=== PATIENT | male | born 1985 | race Caucasian/White ===

== ENCOUNTER 2018-08-15 04:32 | Emergency (ER) | payer BC ==
[~2018-08-15] VITALS: Ht 177.8 cm; Wt 78.5 kg
[2018-08-15] MEDS ORDERED: GAVISCON ES CH1 EAC1 PO (04:51)
[2018-08-15] MEDS ORDERED: NEXIUM40 MG PO (04:51)
[2018-08-15 05:35] LABS: URINE BILIRUBIN NEGATIVE (Negative); URINE BLOOD NEGATIVE (Negative); URINE CLARITY CLEAR; URINE COLOR YELLOW; URINE GLUCOSE-RANDOM NEGATIVE (Negative); URINE KETONES NEGATIVE (Negative); URINE LEUKOCYTES-REFLEX NEGATIVE (Negative); URINE NITRITE-REFLEX NEGATIVE (Negative); URINE PROTEIN NEGATIVE (Negative); URINE SPECIFIC GRAVITY 1.025 (1.005-1.030); URINE UROBILINOGEN 0.2 E.U./dl (0.2-1.0)
[2018-08-15] MEDS ORDERED: CARAFATE 1 GM TA1 GM PO (06:35)
[2018-08-15 06:39] VITALS: BP 104/65
== END 2018-08-15 06:39 | disposition home or self-care (01) ==
LOC: M.ERS 04:32
PROVIDERS: Emergency Medicine
DX: K21.9 Gastro-esophageal reflux disease without esophagitis (principal)